=== PATIENT | male | born 1985 | race Caucasian/White ===

== ENCOUNTER 2023-11-15 09:44 | Emergency (ER) | payer BC, SELFPAY ==
[2023-11-15 09:49] VITALS: BP 123/88; PULSE 79; RESP 18; TEMP 36.6; O2SAT 96; BMI 35.3
--- NOTE | 2023-11-15 10:21 | ED_ITS ---
HPI - Wound/Laceration General Chief Complaint: Wound/Laceration Stated Complaint: UPPER EXTREMITY INJURY Time Seen by Provider: 11/15/23 09:49 Source: patient Mode of arrival: walk-in History of Present Illness HPI narrative: Patient was re-gripping a golf club and his hand slipped and the hook knife he was using cut the left thumb. This just occurred a short time ago. He has a laceration along the radial aspect of the left thumb. He is not up to date on his tetanus. Related Data Allergies Allergy/AdvReac Type Severity Reaction Status Date / Time No Known Drug Allergies Allergy Verified 11/15/23 09:51 Exam Narrative Exam Narrative: Nurses notes and vital signs reviewed and patient is not hypoxic. afebrile General: Well-appearing and in no apparent distress. Skin: Warm, dry, no pallor noted. No rash. Cardiovascular: Normal peripheral perfusion. Respiratory: No accessory muscle use or respiratory distress. Musculoskeletal: LEFT HAND: 1.8cm linear laceration along the radial aspect of the left thumb. No foreign material visualized inside of the wound. It is bleeding vogorously. Thumb with normal ROM and expected strength. no hand or thumb edema/swelling Neurological: A&O x4. No cranial nerve dysfunction observed. No truncal ataxia. Moves all extremities. Sensation intact. Psychiatric: Cooperative and interactive. Normal mood and affect. Constitutional Vital Signs, click to edit/add: Last Vital Signs Temp 97.9 F 11/15/23 09:49 Pulse 79 11/15/23 09:49 Resp 18 11/15/23 09:49 BP 123/88 11/15/23 09:49 Pulse Ox 96 11/15/23 09:49 Course Vital Signs Vital signs: Vital Signs Temperature 97.9 F 11/15/23 09:49 Pulse Rate 79 11/15/23 09:49 Respiratory Rate 18 11/15/23 09:49 Blood Pressure 123/88 11/15/23 09:49 Pulse Oximetry 96 11/15/23 09:49 Temperature 97.9 F 11/15/23 09:49 Pulse Rate 79 11/15/23 09:49 Respiratory Rate 18 11/15/23 09:49 Blood Pressure 123/88 11/15/23 09:49 Pulse Oximetry 96 11/15/23 09:49 MDM - Wound/Laceration MDM Narrative Medical decision making narrative: Laceration repair: All of the procedure was done under sterile conditions. Wound cleansed with betadine and anesthetized with local injection of approximately 3mL of lidocaine 1% with epinephrine. The wound was irrigated copiously with sterile normal saline. The wound was explored to depth and found to be free of foreign material. The laceration wound edges were well- approximated and did not require revision. Wound closed with 5 sterile 4-0 ethilon sutures in simple interrupted fashion. Patient tolerated the procedure well. The patient was neurovascularly intact post-repair. Topical bacitracin applied to the laceration and it was dressed with a dry sterile dressing. The patient will need to follow-up in the next 10 days for removal. Discharge Plan Discharge Stand Alone Forms: Portal Instructions Chief Complaint: Wound/Laceration Clinical Impression: Suture of skin wound, Laceration of thumb Patient Disposition: Home, Self-Care Time of Disposition Decision: 10:47 Instructions: Finger Laceration (ED)
[2023-11-15] MEDS: ADACEL DIPH,PERTUSS(ACELL),TET VAC/PF 0.5 ML ADULT SYRINGE IM (10:24)
[2023-11-15] MEDS: LIDOCAINE HCL 1% 100 MG/10 ML MDV INJ (10:24)
== END 2023-11-15 11:03 | disposition home or self-care (01) ==
PROVIDERS: Emergency Provider Emergency Medicine; Family Provider Internal Medicine
DX: S61.012A Laceration without foreign body of left thumb without damage to nail, initial encounter (principal); Z23 Encounter for immunization; W26.0XXA Contact with knife, initial encounter
CPT/HCPCS: 12001; 90471; 90715; 99284